=== PATIENT | female | born 1995 | race American Indian/Alaskan Native ===

== ENCOUNTER 2017-11-29 20:37 | Emergency (ER) | payer SELFPAY ==
[2017-11-29 20:51] VITALS: BP 129/79
[2017-11-29 21:59] LABS: Bilirubin,Urine NEG (Negative); Blood,Urine NEG (Negative); Color,Urine Yellow (Yellow); Protein,Urine <15 mg/dL mg/dL (Negative); Urobilinogen,Urine < 2.0 mg/dL (<2.0); WBC,Urine < 1.0 /HPF (0.0-6.0)
[2017-11-29 22:05] LABS: HCG Qualitative,Urine Positive (Negative)
== END 2017-11-29 20:54 | disposition left against medical advice (07) ==
LOC: ED 20:37
DX: R10.9 Unspecified abdominal pain (principal); Z53.21 Procedure and treatment not carried out due to patient leaving prior to being seen by health care provider
CPT/HCPCS: 81001; 81025

== ENCOUNTER 2017-12-02 09:19 | Emergency (ER) | payer OTHER ==
--- NOTE | 2017-12-02 10:42 | Emergency Department Report ---
Chief Complaint: Abdominal Pain Stated Complaint: CRAMPS/ Time Seen by Provider: 12/02/17 10:28 - HPI History of Present Illness: 22-year-old female presents to the emergency department with complaint of a 3 week history of lower abdominal and/or pelvic cramping. Her last menstrual cycle was October 12. She has taken a few tests and they have been positive. She denies any vaginal bleeding, dysuria, vaginal discharge, fever, nausea or vomiting. The cramping occurs mostly in the evening. She has not taken anything for her symptoms prior to presentation. She has a past medical history of sickle cell trait. - ROS Review of Systems: Positive for abdominal cramping Negative for nausea, vomiting, fever, back pain, vaginal bleeding or discharge, dysuria - Exam Vital Signs: Vital Signs 12/02/17 09:24 Temperature 97.9 F Pulse Rate 93 H Blood Pressure 136/86 Physical Exam: Heart and lungs sounds are normal to auscultation. Bowel sounds are regular. No tenderness to palpation of the abdomen. She is awake and alert and in no acute distress. MSE screening note: Focused history and physical exam performed. Due to findings the following was ordered: Patient will have a CBC, CMP, quantitative test, urinalysis and then will be reevaluated on the fast track side. ED Disposition for MSE Condition: Stable Instructions: Abdominal Pain (ED) Referrals: PRIMARY CARE, [Primary Care Provider] - 3-5 Days
[2017-12-02 11:12] LABS: Basophils % (Auto) 0.4 % (0.0-1.8); Eosinophils # (Auto) 0.2 K/mm3 (0.0-0.4); Eosinophils % (Auto) 3.8 % (0.0-4.3); Hematocrit 38.2 % (30.3-42.9); Hemoglobin 13.2 gm/dl (10.1-14.3); Lymphocytes # (Auto) 1.6 K/mm3 (1.2-5.4); Lymphocytes % (Auto) 24.5 % (13.4-35.0); Mean Corpuscular HGB Conc 35 % (30-34); Mean Corpuscular Hemoglobin 31 pg (28-32); Mean Corpuscular Volume 89 fl (79-97); Monocytes # (Auto) 0.8 K/mm3 (0.0-0.8); Platelet Count 289 K/mm3 (140-440); Red Blood Count 4.31 M/mm3 (3.65-5.03); Red Cell Distribution Width 14.1 % (13.2-15.2)
[2017-12-02 11:15] LABS: Bilirubin,Urine NEG (Negative); Blood,Urine NEG (Negative); Color,Urine Yellow (Yellow); Protein,Urine <15 mg/dL mg/dL (Negative); Urobilinogen,Urine < 2.0 mg/dL (<2.0)
[2017-12-02 11:25] LABS: Alanine Aminotransferase 17 units/L (7-56); Albumin 4.3 g/dL (3.9-5); BUN/Creatinine Ratio 12; Blood Urea Nitrogen 7 mg/dL (7-17); Calcium 9.2 mg/dL (8.4-10.2); Hemolysis Index 9
--- NOTE | 2017-12-02 12:00 | Emergency Department Report ---
ED Abdominal Pain HPI - General Chief Complaint: Abdominal Pain Stated Complaint: CRAMPS/ Time Seen by Provider: 12/02/17 10:28 Source: patient Mode of arrival: Ambulatory Limitations: No Limitations - History of Present Illness Initial Comments: 22-year-old female presents to the emergency department with complaint of a 3 week history of lower abdominal and/or pelvic cramping. Her last menstrual cycle was October 12. She has taken a few tests and they have been positive. She denies any vaginal bleeding, dysuria, vaginal discharge, fever, nausea or vomiting. The cramping occurs mostly in the evening. She has not taken anything for her symptoms prior to presentation. She has a past medical history of sickle cell trait. She says she cramping is on and off and she is not having any cramping at present. She says she had cramping last night. Nothing makes it worse nothing makes it better. Denies any fever or chills. Denies any shortness of breath or chest pain. Patient is 1 para 0. MD Complaint: abdominal pain (abdominal cramping on and off none since last night) -: Last night Location: suprapubic Radiation: none Migration to: no migration Severity scale (0 -10): 0 Quality: cramping Consistency: intermittent Improves With: nothing Worsens With: nothing Context: other (positive home tests) Associated Symptoms: denies: nausea, vomiting, diarrhea, fever, chills, constipation, dysuria, hematemesis, hematochezia, melena, hematuria, anorexia, syncope Treatments Prior to Arrival: other (none) - Related Data LMP Date: 10/12/17 Previous Rx's Medication Instructions Recorded Last Taken Type Vit No.130/Iron/Folic 1 each PO QAM 30 Days #30 tablet 12/02/17 Unknown Rx [ Tablet] Allergies Allergy/AdvReac Type Severity Reaction Status Date / Time No Known Allergies Allergy Unverified 11/29/17 20:50 ED Review of Systems ROS: Stated complaint: CRAMPS/ Other details as noted in HPI Comment: All other systems reviewed and negative Constitutional: no symptoms reported ENT: denies: throat pain Respiratory: no symptoms reported Cardiovascular: denies: chest pain, palpitations, dyspnea on exertion, edema, syncope, paroxysmal nocturnal dyspnea Gastrointestinal: abdominal pain (abdominal cramping last night but none today) . denies: nausea, vomiting, diarrhea, constipation, hematemesis, melena, hematochezia Genitourinary: abnormal menses. denies: urgency, dysuria, frequency, hematuria , discharge Musculoskeletal: denies: back pain, joint swelling, arthralgia, myalgia Skin: denies: rash Neurological: denies: headache, abnormal gait, vertigo ED Past Medical Hx - Past Medical History Previous Medical History?: Yes Hx Sickle Cell Disease: Yes (just have the trait) - Surgical History Past Surgical History?: No - Family History Family history: no significant - Social History Smoking Status: Never Smoker Substance Use Type: None - Medications Home Medications: Home Medications Medication Instructions Recorded Confirmed Last Taken Type Vit No.130/Iron/Folic 1 each PO QAM 30 Days #30 tablet 12/02/17 Unknown Rx [ Tablet] ED Physical Exam - General Limitations: No Limitations General appearance: alert, in no apparent distress - Head Head exam: Present: atraumatic, normocephalic, normal inspection - Eye Eye exam: Present: normal appearance, PERRL, EOMI Pupils: Present: normal accommodation - ENT ENT exam: Present: normal exam, normal orophraynx, mucous membranes moist - Neck Neck exam: Present: normal inspection, full ROM. Absent: tenderness, lymphadenopathy - Respiratory Respiratory exam: Present: normal lung sounds bilaterally. Absent: respiratory distress, chest wall tenderness - Cardiovascular Cardiovascular Exam: Present: regular rate, normal rhythm, normal heart sounds - GI/Abdominal GI/Abdominal exam: Present: soft, normal bowel sounds. Absent: distended, tenderness, guarding, rebound, rigid, organomegaly, mass, bruit, pulsatile mass , hernia - Extremities Exam Extremities exam: Present: normal inspection, full ROM, normal capillary refill , other (no clubbing, cyanosis or edema. +2 pulses to extremities). Absent: tenderness, pedal edema, joint swelling, calf tenderness - Back Exam Back exam: Present: normal inspection, full ROM, other (ambulates without any difficulties). Absent: tenderness, CVA tenderness (R), CVA tenderness (L), muscle spasm, paraspinal tenderness, vertebral tenderness, rash noted - Neurological Exam Neurological exam: Present: alert, oriented X3, normal gait - Psychiatric Psychiatric exam: Present: normal affect, normal mood - Skin Skin exam: Present: warm, dry, intact, normal color. Absent: rash ED Course Vital Signs 12/02/17 12/02/17 09:24 13:44 Temperature 97.9 F 99.1 F Pulse Rate 93 H 76 Respiratory 18 Rate Blood Pressure 136/86 Blood Pressure 105/68 [Right] O2 Sat by Pulse 99 Oximetry - Reevaluation(s) Reevaluation #1: 12/02/17 13:41 Patient is stable and able tolerate oral liquids in the emergency room. She had uneventful ED stay. Lab work is stable and hCG quantitative positive. ED Medical Decision Making - Lab Data Result diagrams: 12/02/17 10:57 12/02/17 10:57 Lab Results 12/02/17 12/02/17 12/02/17 Range/Units 10:43 10:57 10:57 WBC 6.3 (4.5-11.0) K/mm3 RBC 4.31 (3.65-5.03) M/mm3 Hgb 13.2 (10.1-14.3) gm/dl Hct 38.2 (30.3-42.9) % MCV 89 (79-97) fl MCH 31 (28-32) pg MCHC 35 H (30-34) % RDW 14.1 (13.2-15.2) % Plt Count 289 (140-440) K/mm3 Lymph % (Auto) 24.5 (13.4-35.0) % York % (Auto) 13.0 H (0.0-7.3) % Eos % (Auto) 3.8 (0.0-4.3) % Baso % (Auto) 0.4 (0.0-1.8) % Lymph # 1.6 (1.2-5.4) K/mm3 York # 0.8 (0.0-0.8) K/mm3 Eos # 0.2 (0.0-0.4) K/mm3 Baso # 0.0 (0.0-0.1) K/mm3 Seg Neutrophils % 58.3 (40.0-70.0) % Seg Neutrophils # 3.7 (1.8-7.7) K/mm3 Sodium 133 L (137-145) mmol/L Potassium 3.8 (3.6-5.0) mmol/L Chloride 97.1 L (98-107) mmol/L Carbon Dioxide 23 (22-30) mmol/L Anion Gap 17 mmol/L BUN 7 (7-17) mg/dL Creatinine 0.6 L (0.7-1.2) mg/dL Estimated GFR > 60 ml/min BUN/Creatinine Ratio 12 % Glucose 89 (65-100) mg/dL Calcium 9.2 (8.4-10.2) mg/dL Total Bilirubin 1.00 (0.1-1.2) mg/dL AST 20 (5-40) units/L ALT 17 (7-56) units/L Alkaline Phosphatase 54 (35-129) units/L Total Protein 8.0 (6.3-8.2) g/dL Albumin 4.3 (3.9-5) g/dL Albumin/Globulin Ratio 1.2 % HCG, Quant (0-4) mIU/mL Urine Color Yellow (Yellow) Urine Turbidity Clear (Clear) Urine pH 7.0 (5.0-7.0) Ur Specific Sheridan 1.008 (1.003-1.030) Urine Protein <15 mg/dl (Negative) mg/dL Urine Glucose (UA) Neg (Negative) mg/dL Urine Ketones Neg (Negative) mg/dL Urine Blood Neg (Negative) Urine Nitrite Neg (Negative) Urine Bilirubin Neg (Negative) Urine Urobilinogen < 2.0 (<2.0) mg/dL Ur Leukocyte Esterase Neg (Negative) Urine WBC (Auto) 1.0 (0.0-6.0) /HPF Urine RBC (Auto) 2.0 (0.0-6.0) /HPF U Epithel Cells (Auto) 1.0 (0-13.0) /HPF /12/15 Range/Units 10:57 WBC (4.5-11.0) K/mm3 RBC (3.65-5.03) M/mm3 Hgb (10.1-14.3) gm/dl Hct (30.3-42.9) % MCV (79-97) fl MCH (28-32) pg MCHC (30-34) % RDW (13.2-15.2) % Plt Count (140-440) K/mm3 Lymph % (Auto) (13.4-35.0) % York % (Auto) (0.0-7.3) % Eos % (Auto) (0.0-4.3) % Baso % (Auto) (0.0-1.8) % Lymph # (1.2-5.4) K/mm3 York # (0.0-0.8) K/mm3 Eos # (0.0-0.4) K/mm3 Baso # (0.0-0.1) K/mm3 Seg Neutrophils % (40.0-70.0) % Seg Neutrophils # (1.8-7.7) K/mm3 Sodium (137-145) mmol/L Potassium (3.6-5.0) mmol/L Chloride (98-107) mmol/L Carbon Dioxide (22-30) mmol/L Anion Gap mmol/L BUN (7-17) mg/dL Creatinine (0.7-1.2) mg/dL Estimated GFR ml/min BUN/Creatinine Ratio % Glucose (65-100) mg/dL Calcium (8.4-10.2) mg/dL Total Bilirubin (0.1-1.2) mg/dL AST (5-40) units/L ALT (7-56) units/L Alkaline Phosphatase (35-129) units/L Total Protein (6.3-8.2) g/dL Albumin (3.9-5) g/dL Albumin/Globulin Ratio % HCG, Quant 30740 H (0-4) mIU/mL Urine Color (Yellow) Urine Turbidity (Clear) Urine pH (5.0-7.0) Ur Specific Sheridan (1.003-1.030) Urine Protein (Negative) mg/dL Urine Glucose (UA) (Negative) mg/dL Urine Ketones (Negative) mg/dL Urine Blood (Negative) Urine Nitrite (Negative) Urine Bilirubin (Negative) Urine Urobilinogen (<2.0) mg/dL Ur Leukocyte Esterase (Negative) Urine WBC (Auto) (0.0-6.0) /HPF Urine RBC (Auto) (0.0-6.0) /HPF U Epithel Cells (Auto) (0-13.0) /HPF - Radiology Data Radiology results: report reviewed Ultrasound OB transvaginal with single live intrauterine fetus at 7 weeks and 4 days. Small subchorionic hemorrhage noted. EDC by ultrasound is 07/17/2018. No adnexal mass or free fluid. 2.7 centimeter ovarian cyst to right ovary. Cervical os is closed. heart rate is at 162 bpm. Normal yolk sac. - Medical Decision Making ED course: Patient here reporting that she had abdominal cramping last night and she has had tests at home that has been positive. Patient's not having any vaginal bleeding or discharge and no concerns for STDs. His is her first . She does not have care but she said she has been trying to use [id number] vitamins. hormone test is positive and ultrasound reflects positive intrauterine at 7 weeks and 3 days with positive heart rate. Patient with small subchorionic bleed. I did not see any need for pelvic exam as patient does have access to [facility] and she will be given full exam when she sees [facility]. She was not having any bleeding, vaginally or any vaginal discharge. No concerns for STDs. I discussed patient her lab results and also ultrasound results and instructed her that she needs to follow-up with Dr. Soraida Worthington who is [facility] to call and Monday to schedule an appointment to start care. CBC and chemistry stable, urinalysis is stable. Patient was undescended discharge instruction, diagnosis and treatment plan and discharged home in stable condition with her family with prescription for vitamin. Critical care attestation.: If time is entered above; I have spent that time in minutes in the direct care of this critically ill patient, excluding procedure time. ED Disposition Clinical Impression: Abdominal pain during in first trimester Disposition: DC-01 TO HOME OR SELFCARE Is pt being admited?: No Does the pt Need Aspirin: No Condition: Stable Instructions: Vitamins (By mouth), Morning Sickness (ED), ( ED), Abdominal Pain (ED), Abdominal Pain in (ED) Additional Instructions: Please take vitamin as prescribed [facility] as discussed and referred to discharge instruction paperwork on details on phone number and address. Please call Monday to schedule an appointment for care. Increasing fluid intake to 2 different liters of water daily and avoid spicy and acidic food. Please avoid carbonated beverages. Prescriptions: Vit No.130/Iron/Folic [ Tablet] 1 each PO QAM 30 Days #30 tablet Referrals: FIORELLA WORTHINGTON MD [Staff Physician] - 12/04/17 PRIMARY CARE, [Primary Care Provider] - 2-3 Days Forms: Accompanied Note, Work/School Release Form(ED)
--- NOTE | 2017-12-02 12:48 | Ultrasound Report ---
TRANSABDOMINAL AND TRANSVAGINAL OBSTETRICAL ULTRASOUND:12/02/17 12:12 CLINICAL: Positive test with pain and cramping. FINDINGS: Transabdominal and transvaginal ultrasound demonstrated a single intrauterine gestational sac and living fetus. Westervelt-rump length measured 13.6 mm corresponding to a gestational age = 7 weeks, 4 days. heart rate = 162 beats/min. Normal yolk sac. Closed cervix. A small subchorionic hemorrhage adjacent to the gestational sac measures approximately 1 cm thick and 2.5 cm maximum dimension. No adnexal mass or free fluid. Normal ovaries with a 2.7 cm cyst of the right ovary. The right ovary measured 3.4 x 3.0 x 4.2cm. The left ovary measured 2.9 x 1.2 x 3.1cm. The uterus measured 8.4 x 4.8 x 5.8cm. IMPRESSION: Single living intrauterine fetus at 7 weeks, 4 days based on crown-rump length measurement. A small subchorionic hemorrhage. EDC based on ultrasound is 07/17/18. EDC based on LMP is 07/19/18.
[2017-12-02 13:45] VITALS: BP 105/68
== END 2017-12-02 14:04 | disposition home or self-care (01) ==
LOC: ED 09:19
DX: O26.891 Other specified pregnancy related conditions, first trimester (principal); D57.1 Sickle-cell disease without crisis; Z3A.01 Less than 8 weeks gestation of pregnancy
CPT/HCPCS: 36415; 76801; 76817; 80053; 81001; 84702; 85025; 99284

== ENCOUNTER 2018-03-07 21:40 | Outpatient (CLI) | payer MEDICAID ==
--- NOTE | 2018-03-07 18:09 | Emergency Department Report ---
Blank Doc - Documentation Documentation: Patient is a 22-year-old [place] female who is approximately 20 weeks who states last 24 hours she has had some increased lower back pain. Patient states it feels like her spine is turning and she also has some radiation of discomfort into her left lower extremity. Patient states there is some mild dysuria as well. Patient denies any fevers chills or vaginal bleeding or vaginal discharge. Urinalysis will be performed. Patient's symptoms do sound very similar to sciatica. But her urinary tract infection will be ruled out.
[2018-03-07 20:05] LABS: Bilirubin,Urine NEG (Negative); Blood,Urine NEG (Negative); Color,Urine Yellow (Yellow); Mucus,Urine FEW /HPF; Protein,Urine <15 mg/dL mg/dL (Negative); Urobilinogen,Urine < 2.0 mg/dL (<2.0)
--- NOTE | 2018-03-07 20:55 | Emergency Department Report ---
ED Back Pain/Injury HPI - General Chief Complaint: Back Pain/Injury Stated Complaint: NERVE PAIN Time Seen by Provider: 03/07/18 17:55 Source: patient Limitations: No Limitations - History of Present Illness Initial Comments: This is a 22-year-old female nontoxic, well nourished in appearance, no acute signs of distress presents to the ED with c/o of acute on chronic lower back pain. Patient stated she is about 21 weeks . Patient stated that she follows Dr. Worthington [facility] and had a normal ultrasound done. Patient states has history of sciatica nerve pain which is similar symptoms as today. Patient states that pain radiates through to his left lower extremity. Patient denies any abdominal pain. Patient also stated has some dysuria. Patient denies any trauma. Denies any bladder or bowel instability. Patient denies any other urinary symptoms. Denies any fever, chills, nausea, vomiting, headache, stiff neck, chest pain or shortness of breath. Patient denies any numbness or tingling. Denies any allergies. Denies significant past medical history. MD Complaint: back pain Similar Symptoms Previously: Yes Radiation: left leg Severity: mild Severity scale (0 -10): 8 Quality: aching Consistency: intermittent Improves With: immobilization, supine, sitting upright Worsens With: movement, walking Associated Symptoms: denies: confusion, weakness, chest pain, numbness, difficulty walking, cough, difficulty urinating, diaphoresis, incontinence, fever/chills, constipation, headaches, abdominal pain, loss of appetite, malaise , nausea/vomiting, rash, seizure, shortness of breath, syncope - Related Data Previous Rx's Medication Instructions Recorded Last Taken Type Vit No.130/Iron/Folic 1 each PO QAM 30 Days #30 tablet 12/02/17 Unknown Rx [ Tablet] Acetaminophen 500 mg PO Q8H PRN #30 tablet 03/07/18 Unknown Rx Allergies Allergy/AdvReac Type Severity Reaction Status Date / Time No Known Allergies Allergy Unverified 11/29/17 20:50 ED Review of Systems ROS: Stated complaint: NERVE PAIN Other details as noted in HPI Constitutional: denies: chills, fever Eyes: denies: eye pain, eye discharge, vision change ENT: denies: ear pain, throat pain Respiratory: denies: cough, shortness of breath, wheezing Cardiovascular: denies: chest pain, palpitations Endocrine: no symptoms reported Gastrointestinal: denies: abdominal pain, nausea, diarrhea Genitourinary: denies: urgency, dysuria, discharge Musculoskeletal: back pain. denies: joint swelling, arthralgia Skin: denies: rash, lesions Neurological: denies: headache, weakness, paresthesias Psychiatric: denies: anxiety, depression Hematological/Lymphatic: denies: easy bleeding, easy bruising ED Past Medical Hx - Past Medical History Previous Medical History?: No Hx Sickle Cell Disease: Yes (just have the trait) - Surgical History Past Surgical History?: No - Social History Smoking Status: Never Smoker Substance Use Type: None - Medications Home Medications: Home Medications Medication Instructions Recorded Confirmed Last Taken Type Vit No.130/Iron/Folic 1 each PO QAM 30 Days #30 tablet 12/02/17 Unknown Rx [ Tablet] Acetaminophen 500 mg PO Q8H PRN #30 tablet 03/07/18 Unknown Rx ED Physical Exam - General Limitations: No Limitations General appearance: alert, in no apparent distress - Head Head exam: Present: atraumatic, normocephalic - Eye Eye exam: Present: normal appearance Pupils: Present: normal accommodation - ENT ENT exam: Present: normal exam, mucous membranes moist - Neck Neck exam: Present: normal inspection, full ROM. Absent: tenderness, meningismus, lymphadenopathy - Respiratory Respiratory exam: Present: normal lung sounds bilaterally. Absent: respiratory distress, wheezes, rales, rhonchi, stridor, chest wall tenderness, accessory muscle use, decreased breath sounds, prolonged expiratory - Cardiovascular Cardiovascular Exam: Present: regular rate, normal rhythm, normal heart sounds. Absent: irregular rhythm, systolic murmur, diastolic murmur, rubs, gallop - GI/Abdominal GI/Abdominal exam: Present: soft, normal bowel sounds. Absent: distended, tenderness, guarding, rebound, rigid, diminished bowel sounds - Rectal Rectal exam: Present: deferred - Extremities Exam Extremities exam: Present: normal inspection, full ROM, normal capillary refill. Absent: tenderness - Back Exam Back exam: Present: normal inspection, full ROM, paraspinal tenderness (left lumbar paraspinal). Absent: tenderness, CVA tenderness (R), CVA tenderness (L) , muscle spasm - Neurological Exam Neurological exam: Present: alert, oriented X3, normal gait - Psychiatric Psychiatric exam: Present: normal affect, normal mood - Skin Skin exam: Present: warm, dry, intact, normal color. Absent: rash ED Course Vital Signs 03/07/18 15:35 Temperature 98.5 F Pulse Rate 92 H Respiratory 18 Rate Blood Pressure 136/88 O2 Sat by Pulse 100 Oximetry - Reevaluation(s) Reevaluation #1: 03/07/18 20:52 Patient is speaking in full sentences with no signs of distress noted. ED Medical Decision Making - Medical Decision Making This is a 22-year-old female that presents with low back strain and dysuria. Patient is stable was examined by me and Dr. Jasmine. There is no spinal tenderness. There is no cauda equina syndrome during examination. No bladder or bowel instability. Patient received Tylneiol in the ED which stated symptoms has resolved and subsided. US within normal limits. UIrine culture pending. Due to symptoms of dysuria, patient will be started with Macrobid. Patient is sent labor and delivery for further work-up after ED. Patient was brought by RN to L/D floor. Patient was referred to Follow-up with a primary care doctor in 3-5 days or if symptoms worsen and continue return to emergency room as soon as possible. At time of leaving ED department to L/D, the patient does not seem toxic or ill in appearance. No acute signs of distress noted. Patient agrees to treatment plan of care. No further questions noted by the patient. This chart is dictated with using [employer] Dictation Program Disposition is to L/D unit. (Not to home/selfcare) due to no option for L/D unit. Critical care attestation.: If time is entered above; I have spent that time in minutes in the direct care of this critically ill patient, excluding procedure time. ED Disposition Clinical Impression: Dysuria Low back strain Qualifiers: Encounter type: initial encounter Qualified Code(s): S39.012A - Strain of muscle, fascia and tendon of lower back, initial encounter Qualifiers: Weeks of gestation: 21 weeks Qualified Code(s): Z3A.21 - 21 weeks gestation of Disposition: - TO HOME OR SELFCARE Is pt being admited?: No Does the pt Need Aspirin: No Condition: Stable Instructions: (ED) Additional Instructions: Follow-up with a health editor doctor in 3-5 days or if symptoms worsen and continue return to emergency room as soon as possible. Prescriptions: Acetaminophen 500 mg PO Q8H PRN #30 tablet PRN Reason: Pain , Severe (7-10) Referrals: PRIMARY CARE, [Primary Care Provider] - 3-5 Days FIORELLA WORTHINGTON MD [Staff Physician] - 3-5 Days [facility] [Provider Group] - 3-5 Days CB WORTHINGTON MD [Staff Physician] - 3-5 Days Forms: Work/School Release Form(ED)
--- NOTE | 2018-03-07 21:08 | Ultrasound Report ---
FINAL REPORT PROCEDURE: Obstetrical ultrasound. TECHNIQUE: Real-time transabdominal sonography of the uterus, placenta, amniotic fluid, adnexa, and fetus was performed with image documentation. Measurements were obtained to determine age/size. M-mode Doppler was used to document heartbeat. CPT 04869 HISTORY: , back pain. COMPARISON: No prior studies are available for comparison. FINDINGS: There is a single viable fetus in cephalic presentation. Cardiac activity is documented at 137 beats per minute. There are no congenital anomalies identified. The amniotic fluid volume appears normal. The placenta is posterior and left lateral in location, grade 1. There is no evidence of placental abruption. The cervix measures 3.2 centimeters in length. The measured parameters are as follows: Biparietal diameter 5.3 centimeters, head circumference 19.2 centimeters, abdominal circumference 16.1 centimeters, femur length 3.6 centimeters. The calculated menstrual age is 21 weeks 4 days. The estimated date of confinement is 07/14/2018. The estimated weight is currently 418 grams. IMPRESSION: Viable intrauterine fetus in cephalic presentation with a menstrual age of 21 weeks 4 days.
[~2018-03-07 21:40] MED LIST: TYLENOL PO ONE
[2018-03-07] MEDS ORDERED: LACTATED RINGERS 500 ML IV ONE (22:45)
[2018-03-07 23:16] LABS: Bilirubin,Urine NEG (Negative); Blood,Urine NEG (Negative); Color,Urine Yellow (Yellow); Mucus,Urine FEW /HPF; Protein,Urine <15 mg/dL mg/dL (Negative); RBC,Urine < 1.0 /HPF (0.0-6.0); Urobilinogen,Urine < 2.0 mg/dL (<2.0)
[2018-03-07 23:25] VITALS: BP 111/61
== END 2018-03-07 23:54 | disposition home or self-care (01) ==
LOC: TRG 21:40 → EDSTATUS 21:42 → TRG 21:57
PROVIDERS: ATTEND Obstetrics & Gynecology
DX: O26.892 Other specified pregnancy related conditions, second trimester (principal); M54.5 Low back pain; Z3A.21 21 weeks gestation of pregnancy
CPT/HCPCS: 36415; 76805; 81001; 84702; 87086; 96360; J7120

== ENCOUNTER 2018-03-09 10:41 | Outpatient (CLI) | payer MEDICAID ==
[2018-03-09 12:38] VITALS: BP 111/69
== END 2018-03-09 12:53 | disposition home or self-care (01) ==
LOC: TRG 10:41
PROVIDERS: ATTEND Obstetrics & Gynecology
DX: O47.02 False labor before 37 completed weeks of gestation, second trimester (principal); Z3A.21 21 weeks gestation of pregnancy
CPT/HCPCS: 59025

== ENCOUNTER 2018-03-30 18:49 | Outpatient (CLI) | payer MEDICAID ==
[2018-03-30 19:22] VITALS: BP 112/65
[2018-03-30 21:55] LABS: Bilirubin,Urine NEG (Negative); Blood,Urine NEG (Negative); Color,Urine Yellow (Yellow); Mucus,Urine FEW /HPF; Protein,Urine <15 mg/dL mg/dL (Negative); Urobilinogen,Urine < 2.0 mg/dL (<2.0)
== END 2018-03-30 22:16 | disposition home or self-care (01) ==
LOC: TRG 18:49
PROVIDERS: ATTEND Obstetrics & Gynecology
DX: O47.02 False labor before 37 completed weeks of gestation, second trimester (principal); Z3A.24 24 weeks gestation of pregnancy
CPT/HCPCS: 59025; 81001

== ENCOUNTER 2018-04-25 15:04 | Emergency (ER) | payer MEDICAID ==
[2018-04-25 17:11] LABS: Basophils % (Auto) 0.2 % (0.0-1.8); Eosinophils # (Auto) 0.2 K/mm3 (0.0-0.4); Eosinophils % (Auto) 1.8 % (0.0-4.3); Hematocrit 34.5 % (30.3-42.9); Hemoglobin 11.8 gm/dl (10.1-14.3); Lymphocytes # (Auto) 1.8 K/mm3 (1.2-5.4); Lymphocytes % (Auto) 14.8 % (13.4-35.0); Mean Corpuscular HGB Conc 34 % (30-34); Mean Corpuscular Hemoglobin 32 pg (28-32); Mean Corpuscular Volume 93 fl (79-97); Monocytes # (Auto) 1.3 K/mm3 (0.0-0.8); Monocytes % (Auto) 10.6 % (0.0-7.3); Platelet Count 272 K/mm3 (140-440); Red Blood Count 3.69 M/mm3 (3.65-5.03); Red Cell Distribution Width 13.9 % (13.2-15.2)
[2018-04-25 17:33] LABS: BUN/Creatinine Ratio 22; Blood Urea Nitrogen 13 mg/dL (7-17); Calcium 9.7 mg/dL (8.4-10.2); Hemolysis Index 11
[2018-04-25 18:07] LABS: Bacteria,Urine 1+ /HPF (Negative); Bilirubin,Urine NEG (Negative); Blood,Urine NEG (Negative); Color,Urine Yellow (Yellow); Protein,Urine <15 mg/dL mg/dL (Negative); RBC,Urine < 1.0 /HPF (0.0-6.0); Urobilinogen,Urine < 2.0 mg/dL (<2.0)
[2018-04-25 18:34] LABS: Amphetamine Screen,Urine PRESUMPTIVE NEGATIVE; Benzodiazepines Screen,Urine PRESUMPTIVE NEGATIVE; Cannabinoid Screen,Urine PRESUMPTIVE NEGATIVE; Cocaine Screen,Urine PRESUMPTIVE NEGATIVE; Methadone Screen,Urine PRESUMPTIVE NEGATIVE; Opiate Screen,Urine PRESUMPTIVE NEGATIVE
--- NOTE | 2018-04-25 21:10 | Emergency Department Report ---
ED Psych HPI - General Chief Complaint: Psych Stated Complaint: FEELING BLEW Time Seen by Provider: 04/25/18 20:16 Source: patient Mode of arrival: Ambulatory - History of Present Illness Initial Comments: Patient is 22 years old female, 28 weeks . Patient referred from Dr. Anna Worthington after she was found to have depression and suicidal ideation. Patient referred here for mental health assessment. Patient stated that she's been depressed on and off for the last few weeks and she had some thoughts of hurting herself. Patient said the last time she thought about hurting herself was 2 weeks ago and she called her girlfriend and she felt fine after that. Patient does not have a specific plan. She denied any auditory or visual hallucination. No homicidal ideation. MD Complaint: suicidal ideation, feels depressed -: week(s) Associated Psychiatric Symptoms: depression, suicidal ideation - Related Data Previous Rx's Medication Instructions Recorded Last Taken Type Vit No.130/Iron/Folic 1 each PO QAM 30 Days #30 tablet 12/02/17 Rx [ Tablet] Acetaminophen 500 mg PO Q8H PRN #30 tablet 03/07/18 Unknown Rx Allergies Allergy/AdvReac Type Severity Reaction Status Date / Time No Known Allergies Allergy Verified 03/07/18 22:47 ED Review of Systems ROS: Stated complaint: FEELING BLEW Other details as noted in HPI Comment: All other systems reviewed and negative Constitutional: denies: chills, fever Respiratory: denies: cough, orthopnea, shortness of breath, SOB with exertion, SOB at rest, wheezing Cardiovascular: denies: chest pain, palpitations, dyspnea on exertion Gastrointestinal: denies: abdominal pain, nausea, vomiting, diarrhea, constipation, hematemesis, melena, hematochezia Genitourinary: denies: urgency, frequency, hematuria Neurological: denies: headache, weakness, numbness, paresthesias, confusion, abnormal gait ED Past Medical Hx - Past Medical History Previous Medical History?: Yes Hx Hypertension: No Hx Diabetes: No Hx Deep Vein Thrombosis: No Hx Renal Disease: No Hx Sickle Cell Disease: Yes (TRAIT) Hx Seizures: No Hx Psychiatric Treatment: Yes (cutting, suicide attempt (tylenol)) Hx Asthma: No Hx HIV: No - Surgical History Past Surgical History?: No - Social History Smoking Status: Never Smoker Substance Use Type: None - Medications Home Medications: Home Medications Medication Instructions Recorded Confirmed Last Taken Type Vit No.130/Iron/Folic 1 each PO QAM 30 Days #30 tablet 12/02/1703/07/18 Rx [ Tablet] Acetaminophen 500 mg PO Q8H PRN #30 tablet 03/07/18 Unknown Rx ED Physical Exam - General Limitations: No Limitations General appearance: alert, in no apparent distress - Head Head exam: Present: atraumatic, normocephalic, normal inspection - Eye Eye exam: Present: normal appearance, PERRL - ENT ENT exam: Present: normal exam, normal orophraynx, mucous membranes moist - Neck Neck exam: Present: normal inspection, full ROM. Absent: tenderness, meningismus - Respiratory Respiratory exam: Present: normal lung sounds bilaterally. Absent: respiratory distress, wheezes, rales, rhonchi, stridor, chest wall tenderness, accessory muscle use, decreased breath sounds, prolonged expiratory - Cardiovascular Cardiovascular Exam: Present: regular rate, normal rhythm, normal heart sounds - GI/Abdominal GI/Abdominal exam: Present: soft, normal bowel sounds. Absent: distended, tenderness, guarding, rebound, rigid, organomegaly, mass, bruit, pulsatile mass , hernia - Extremities Exam Extremities exam: Present: normal inspection, full ROM, normal capillary refill. Absent: tenderness, pedal edema, joint swelling, calf tenderness - Back Exam Back exam: Present: normal inspection, full ROM. Absent: tenderness, CVA tenderness (R), CVA tenderness (L), muscle spasm, paraspinal tenderness, vertebral tenderness, rash noted - Neurological Exam Neurological exam: Present: alert, oriented X3, CN II-XII intact, normal gait - Psychiatric Psychiatric exam: Present: depressed, suicidal ideation. Absent: agitated, anxious, flat affect, manic, homicidal ideation - Skin Skin exam: Present: warm, intact, normal color ED Course Vital Signs 04/25/18 16:38 Temperature 98.7 F Pulse Rate 92 H Respiratory 18 Rate Blood Pressure 106/79 O2 Sat by Pulse 98 Oximetry ED Medical Decision Making - Lab Data Result diagrams: 04/25/18 16:49 04/25/18 16:49 Critical care attestation.: If time is entered above; I have spent that time in minutes in the direct care of this critically ill patient, excluding procedure time. ED Disposition Clinical Impression: Depression, Suicidal ideation Disposition: DC/TX-65 PSY HOSP/PSY UNIT Is pt being admited?: No Condition: Stable Referrals: PRIMARY CARE, [Primary Care Provider] - 3-5 Days
[2018-04-26] MEDS ORDERED: PRENATAL VITAMIN PO SCH (12:30)
[2018-04-26 13:48] VITALS: BP 138/77
--- NOTE | 2018-04-26 14:23 | Consultation ---
History of Present Illness - Reason for Consult Consult date: 04/26/18 Reason for consult: Mental Health Evaluation Requesting physician: CLAUS RODRIGUEZ - Chief Complaint Chief complaint: "I was never suicidal" - History of Present Psychiatric Illness 22 years old AA female that's 28 weeks presents to the ER for depression and possible SI's. Today the patient is calm and cooperative during the assessment. She stated that she was never suicidal, just wanted to talk with a therapist because this is her first . She stated that she reached out to her TECHNICIAN ANATOMIC PATHOLOGY and the physician told her to come to the ER to get a referral to see a therapist. She denies any previous suicide attempts when asked. She denies stating that she was suicidal during triage. Per collateral information from her Janee Baker at [phone], she stated that the patient was never suicidal when she came to the ER. She confirmed the patient's story reference why the TECHNICIAN [employer]AT[employer]OLOG[employer] doctor was contacted. She stated that she feel safe for the patient to return home once discharged. The patient denies SI/HI's and AVH's. She denies erratic sleep and a poor appetite. She denies recreational drug use and alcohol consumption (etoh). Medications and Allergies Allergies Allergy/AdvReac Type Severity Reaction Status Date / Time No Known Allergies Allergy Verified 03/07/18 22:47 Home Medications Medication Instructions Recorded Confirmed Last Taken Type Vit No.130/Iron/Folic 1 each PO QAM 30 Days #30 tablet 12/02/1703/07/18 Rx [ Tablet] Active Meds: Active Medications Multivitamins/Iron/Calcium ( Vitamin) 1 each PO DAILY ANKITA Last Admin: 04/26/18 14:14 Dose: 1 each Past psychiatric history - Past Medical History Past Medical History: other (23 weeks ) Past Surgical History: No surgical history - past Psychiatric treatment and history psychiatric treatment history: Denies a psy hx. Denies a fam psy hx. - Social History Social history: lives with family Mental Status Exam - Vital signs Last Vital Signs Temp 97.8 F 04/26/18 13:47 Pulse 90 04/26/18 13:47 Resp 16 04/25/18 21:09 BP 138/77 04/26/18 13:47 Pulse Ox 97 04/26/18 13:47 - Exam Narrative exam: MSE: Appearance: calm, cooperative Behavior: regular eye contact Speech: regular rate and tone Mood: "okay" Affect: congruent to mood Thought Process: logical Thought Content: denies SI/HI's and AVH's Motor Activity: ambulatory Cognition: A/O x 3 Insight: appropriate Judgment: appropriate Results Result Diagrams: 04/25/18 16:49 04/25/18 16:49 Abnormal lab results 04/25/18 04/25/18 04/25/18 Range/Units 16:49 16:49 16:49 WBC (4.5-11.0) K/mm3 Phillips % (Auto) (0.0-7.3) % Phillips # (0.0-0.8) K/mm3 Seg Neutrophils % (40.0-70.0) % Seg Neutrophils # (1.8-7.7) K/mm3 Creatinine 0.6 L (0.7-1.2) mg/dL Glucose 64 L (65-100) mg/dL Salicylates < 0.3 L (2.8-20.0) mg/dL Acetaminophen < 5.0 L (10.0-30.0) ug/mL 04/25/18 Range/Units 16:49 WBC 12.0 H (4.5-11.0) K/mm3 Phillips % (Auto) 10.6 H (0.0-7.3) % Phillips # 1.3 H (0.0-0.8) K/mm3 Seg Neutrophils % 72.6 H (40.0-70.0) % Seg Neutrophils # 8.7 H (1.8-7.7) K/mm3 Creatinine (0.7-1.2) mg/dL Glucose (65-100) mg/dL Salicylates (2.8-20.0) mg/dL Acetaminophen (10.0-30.0) ug/mL All other labs normal. Assessment and Plan Assessment and plan: Impression: Adjustment DO. Today the patient is calm and cooperative during the assessment. The patient is no threat to self. Recommendation/Plan: Rescind 1013. The patient can follow up with [facility] for outpatient psy services (therapy).
--- NOTE | 2018-04-26 15:26 | Emergency Department Report ---
Blank Doc - Documentation Documentation: Patient is a 22-year-old Female who is presented yesterday for possible suicidal ideations. Patient states she's been stressed because this is her first and she told her RESEARCH STUDY ASSISTANT about a episode approximately 2 weeks ago when she felt suicidal. Patient states that she is not suicidal or homicidal at this time. He is calm and cooperative. Patient seen by a psychotherapist and deemed to be safe to return home. Patient is contracted for safety. Her 1013 is been rescinded. The patient will be discharged home.
== END 2018-04-26 16:30 | disposition home or self-care (01) ==
LOC: ED 15:04
DX: O26.893 Other specified pregnancy related conditions, third trimester (principal); F32.9 Major depressive disorder, single episode, unspecified; Z3A.28 28 weeks gestation of pregnancy
CPT/HCPCS: 36415; 80048; 80307; 81001; 84703; 85025; 99284; G0480; 80320

== ENCOUNTER 2022-04-07 12:12 | Emergency (ER) | payer SELFPAY ==
[2022-04-07] MEDS ORDERED: LORazepam 1 MG TAB PO ONE (12:59)
--- NOTE | 2022-04-07 13:02 | Emergency Department Report ---
ED General Adult HPI - General Chief complaint: Anxiety Stated complaint: CHEST PAIN/ANXIETY Time Seen by Provider: 04/07/22 12:55 Source: patient, EMS Mode of arrival: Stretcher Limitations: No Limitations - History of Present Illness Initial comments: The patient presents to the emergency department via EMS with a chief complaint of racing heart and numbness of her hands and feet. Patient states the symptoms started this morning. The patient states that her heart is beating through her chest and she feels like she has to breathe rapidly to catch her breath. Patient is very anxious on exam and is tearful. Patient denies having a history of anxiety or panic disorder. Patient does endorse having a stressor pertaining to her son. -: Sudden Severity scale (0 -10): 1 Quality: aching Consistency: constant Improves with: none Worsens with: none Associated Symptoms: denies other symptoms Treatments Prior to Arrival: none - Related Data Previous Rx's Medication Instructions Recorded Last Taken Type Vit No.130/Iron/Folic 1 each PO QAM 30 Days #30 tablet 12/02/17 07/01/18 Rx [ Tablet] Docusate Sodium [Colace] 100 mg PO BID PRN #60 capsule 07/03/18 Unknown Rx Ibuprofen [Motrin] 800 mg PO Q8HR PRN #60 tablet 07/03/18 Unknown Rx Oxycodone HCl/Acetaminophen 1 each PO Q6HR PRN #45 tablet 07/03/18 Unknown Rx [Percocet 7.5/325 mg] hydrOXYzine HCL [Atarax] 25 mg PO BID PRN #30 tablet 04/07/22 Unknown Rx Allergies Allergy/AdvReac Type Severity Reaction Status Date / Time No Known Allergies Allergy Verified 03/07/18 22:47 ED Review of Systems ROS: Stated complaint: CHEST PAIN/ANXIETY Other details as noted in HPI Comment: All other systems reviewed and negative Constitutional: denies: chills, fever Eyes: denies: eye pain, eye discharge, vision change ENT: denies: ear pain, throat pain Respiratory: denies: cough, shortness of breath, wheezing Cardiovascular: denies: chest pain, palpitations Endocrine: no symptoms reported Gastrointestinal: denies: abdominal pain, nausea, diarrhea Genitourinary: denies: urgency, dysuria, discharge Musculoskeletal: denies: back pain, joint swelling, arthralgia Skin: denies: rash, lesions Neurological: denies: headache, weakness, paresthesias Psychiatric: anxiety. denies: depression Hematological/Lymphatic: denies: easy bleeding, easy bruising ED Past Medical Hx - Past Medical History Hx Hypertension: No Hx Congestive Heart Failure: No Hx Diabetes: No Hx Deep Vein Thrombosis: No Hx Renal Disease: No Hx Sickle Cell Disease: No Hx Seizures: No Hx Psychiatric Treatment: Yes (cutting, suicide attempt (tylenol)) Hx Asthma: No Hx COPD: No Hx HIV: No - Social History Smoking Status: Never Smoker - Medications Home Medications: Home Medications Medication Instructions Recorded Confirmed Last Taken Type Vit No.130/Iron/Folic 1 each PO QAM 30 Days #30 tablet 12/02/17 1 09/01/17 07/01/18 Rx [ Tablet] Docusate Sodium [Colace] 100 mg PO BID PRN #60 capsule 07/03/18 Unknown Rx Ibuprofen [Motrin] 800 mg PO Q8HR PRN #60 tablet 07/03/18 Unknown Rx Oxycodone HCl/Acetaminophen 1 each PO Q6HR PRN #45 tablet 07/03/18 Unknown Rx [Percocet 7.5/325 mg] hydrOXYzine HCL [Atarax] 25 mg PO BID PRN #30 tablet 04/07/22 Unknown Rx ED Physical Exam - General Limitations: No Limitations General appearance: alert, anxious - Head Head exam: Present: atraumatic, normocephalic - Eye Eye exam: Present: normal appearance - ENT ENT exam: Present: mucous membranes moist - Neck Neck exam: Present: normal inspection - Respiratory Respiratory exam: Present: normal lung sounds bilaterally. Absent: respiratory distress - Cardiovascular Cardiovascular Exam: Present: normal rhythm, tachycardia. Absent: systolic murmur, diastolic murmur, rubs, gallop - GI/Abdominal GI/Abdominal exam: Present: soft, normal bowel sounds. Absent: distended, tenderness - Extremities Exam Extremities exam: Present: normal inspection - Back Exam Back exam: Present: normal inspection - Neurological Exam Neurological exam: Present: alert, oriented X3, CN II-XII intact. Absent: motor sensory deficit - Psychiatric Psychiatric exam: Present: normal affect, normal mood - Skin Skin exam: Present: warm, dry, intact, normal color. Absent: rash ED Course Vital Signs 04/07/22 12:13 Temperature 97.9 F Pulse Rate 105 H Respiratory 16 Rate Blood Pressure 128/86 [Left] O2 Sat by Pulse 99 Oximetry ED Medical Decision Making - Lab Data Result diagrams: 04/07/22 13:17 04/07/22 13:17 - Medical Decision Making Patient received 2 mg Ativan with complete resolvent of her symptoms Critical care attestation.: If time is entered above; I have spent that time in minutes in the direct care of this critically ill patient, excluding procedure time. ED Disposition Clinical Impression: Anxiousness Disposition: 01 HOME / SELF CARE / HOMELESS Is pt being admited?: No Does the pt Need Aspirin: No Condition: Stable Instructions: Managing Anxiety, Adult Additional Instructions: Return if worse Prescriptions: hydrOXYzine HCL [Atarax] 25 mg PO BID PRN #30 tablet PRN Reason: anxiety Referrals: CHI PEREIRA MD [Primary Care Provider] - 3-5 Days [facility] [Outside] - 3-5 Days Time of Disposition: 17:15
[2022-04-07 14:04] LABS: Basophils % (Auto) 0.1 % (0.0-1.8); Eosinophils % (Auto) 0.3 % (0.0-4.3); Hemoglobin 12.3 gm/dl (10.1-14.3); Lymphocytes # (Auto) 2.1 K/mm3 (1.2-5.4); Lymphocytes % (Auto) 24.9 % (13.4-35.0); Mean Corpuscular HGB Conc 35 % (30-34); Mean Corpuscular Volume 92 fl (79-97); Monocytes # (Auto) 0.8 K/mm3 (0.0-0.8); Monocytes % (Auto) 9.1 % (0.0-7.3); Platelet Count 300 K/mm3 (140-440); Red Cell Distribution Width 14.1 % (13.2-15.2)
[2022-04-07 14:26] LABS: BUN/Creatinine Ratio 11; Blood Urea Nitrogen 9 mg/dL (7-17); Calcium 9.9 mg/dL (8.4-10.2); Hemolysis Index 3
[2022-04-07 17:50] VITALS: BP 114/60
== END 2022-04-07 17:55 | disposition home or self-care (01) ==
LOC: ED 12:12
DX: F41.9 Anxiety disorder, unspecified (principal)
CPT/HCPCS: 36415; 80048; 84702; 85025; 99284